=== PATIENT | female | born 1945 | race Caucasian/White ===

== ENCOUNTER → 2018-01-22 | Outpatient (CLI) | payer MEDICARE, OTHER ==
--- NOTE | 2018-01-22 17:20 | KCIC ---
AP view of the pelvis Clinical indications: Bilateral low back pain without sciatica. FINDINGS: Hip joints are symmetric but there is mild joint space during of both hip joints consistent with mild osteoarthritis. No significant spurring is seen. No diastases of the symphysis pubis or either SI joint is seen. No acute fracture or osteolytic process is evident. 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 Electronically signed by: Raad Thomas MD (01/22/2018 5:16 PM) [id number]
== END | disposition home or self-care (01) ==
LOC: KCIC 12:45
PROVIDERS: ATTEND Internal Medicine Rheumatology
DX: M16.0 Bilateral primary osteoarthritis of hip (principal)
CPT/HCPCS: 72170